=== PATIENT | female | born 1960 ===

== ENCOUNTER 2022-08-15 07:37 | Day surgery (SDC) | payer BC ==
[~2022-08-15] VITALS: Ht 170.2 cm; Wt 125.0 kg
[~2022-08-15 07:37] MED LIST: ALPR.25 PO; LISI10 PO; OMEP20ER PO; SERT25 PO; SIMV40 PO
[2022-08-15] MEDS ORDERED: ATOR10 (08:10)
[2022-08-15] MEDS ORDERED: DOCU100 (08:11)
[2022-08-15] MEDS ORDERED: CHLO25B (08:11)
[2022-08-15] MEDS ORDERED: ESZO2 (08:11)
[2022-08-15] MEDS ORDERED: DULO60 (08:11)
[2022-08-15] MEDS ORDERED: METF500 (08:12)
[2022-08-15] MEDS ORDERED: LEVSOD75 (08:12)
[2022-08-15] MEDS ORDERED: LIOT25 (08:12)
[2022-08-15] MEDS ORDERED: SELENIOUS40 MCG/1 M (08:13)
[2022-08-15] MEDS ORDERED: ONDA4ODT (08:13)
[2022-08-15] MEDS ORDERED: MIRTAZAPINE7.5 M1 (08:13)
[2022-08-15] MEDS ORDERED: Inderal60 MG (08:13)
== END 2022-08-15 10:55 | disposition home or self-care (01) ==
LOC: ORSCSDS 07:37
PROVIDERS: Student in an Organized Health Care Education/Training Program
PROC: 0DB78ZX Excision of Stomach, Pylorus, Via Natural or Artificial Opening Endoscopic, Diagnostic (ICD-10-PCS; principal; 2022-08-15 09:15)
PROC: 0DBL8ZX Excision of Transverse Colon, Via Natural or Artificial Opening Endoscopic, Diagnostic (ICD-10-PCS; principal; 2022-08-15 09:15)
PROC: 0DB98ZX Excision of Duodenum, Via Natural or Artificial Opening Endoscopic, Diagnostic (ICD-10-PCS; principal; 2022-08-15 09:15)
PROC: 0DBM8ZX Excision of Descending Colon, Via Natural or Artificial Opening Endoscopic, Diagnostic (ICD-10-PCS; principal; 2022-08-15 09:15)
PROC: 0DB48ZX Excision of Esophagogastric Junction, Via Natural or Artificial Opening Endoscopic, Diagnostic (ICD-10-PCS; principal; 2022-08-15 09:15)
PROC: 0DBN8ZX Excision of Sigmoid Colon, Via Natural or Artificial Opening Endoscopic, Diagnostic (ICD-10-PCS; principal; 2022-08-15 09:15)
DX: K21.9 Gastro-esophageal reflux disease without esophagitis (principal); R13.10 Dysphagia, unspecified; K59.00 Constipation, unspecified; Z86.010 Personal history of colon polyps; Z80.0 Family history of malignant neoplasm of digestive organs; K31.7 Polyp of stomach and duodenum; D12.3 Benign neoplasm of transverse colon; K63.5 Polyp of colon; E11.9 Type 2 diabetes mellitus without complications; E03.9 Hypothyroidism, unspecified; G47.33 Obstructive sleep apnea (adult) (pediatric); E66.01 Morbid (severe) obesity due to excess calories; Z68.41 Body mass index [BMI] 40.0-44.9, adult; Z79.899 Other long term (current) drug therapy; E78.5 Hyperlipidemia, unspecified; F84.5 Asperger's syndrome; Z79.84 Long term (current) use of oral hypoglycemic drugs
CPT/HCPCS: 82947; J2001; J2405; J2704; J7120

== ENCOUNTER → 2023-10-23 | Outpatient (CLI) | payer BC ==
[~2023-10-23] MED LIST changes: +ATOR10; +CHLO25B; +DOCU100; +DULO60; +ESZO2; +Inderal60 MG; +LEVSOD75; +LIOT25; +METF500; +MIRTAZAPINE7.5 M1; +ONDA4ODT; +SELENIOUS40 MCG/1 M
[2023-11-08 06:27] LABS: HPV HIGH RISK BY TMA Not Detected; HPV SOURCE Cervical/Vag
== END ==
LOC: LAB 16:38 → LAB SHORT 16:38
PROVIDERS: Family Medicine
DX: Z01.419 Encounter for gynecological examination (general) (routine) without abnormal findings (principal)
CPT/HCPCS: 87624; G0123

== ENCOUNTER → 2023-10-23 | Outpatient (CLI) | payer BC | END | disposition home or self-care (01) | LOC: LAB 07:44 → LAB SHORT 07:44 | DX: N90.89 Other specified noninflammatory disorders of vulva and perineum (principal) | CPT/HCPCS: 88305; 88312 ==